=== PATIENT | female | born 2000 | race African-American/Black ===

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

== ENCOUNTER 2022-05-11 18:51 | Emergency (ER) | payer BC, SELFPAY ==
[2022-05-11 19:06] VITALS: BP 149/98; PULSE 103; RESP 16; O2SAT 99
--- NOTE | 2022-05-11 19:23 | ED.NAVMDI ---
HPI - Nausea/Vomiting/Diarrhea General Chief complaint: Nausea/Vomiting/Diarrhea Stated complaint: vomiting Source: patient and RN notes reviewed Mode of arrival: ambulatory Limitations: no limitations History of Present Illness HPI Narrative: 22-year-old female presented for complaint of emesis x1 week with eating. Endorses constant nausea. Cannot keep liquids down. She states for 3 days she has had sore throat as well. She returned from a cruise 2 days ago. Denies sick contacts. Denies abdominal pain, diarrhea, fevers or chills. Related Data Home Medications Medication Instructions Recorded Confirmed levonorgestrel-ethinyl estradiol 1 tablet DIRECTED 05/11/22 05/11/22 0.1 mg-20 mcg tablet ([place]) Allergies Allergy/AdvReac Type Severity Reaction Status Date / Time amoxicillin Allergy Mild Rash Verified 05/11/22 19:37 Review of Systems Review of Systems: CONSTITUTIONAL: Denies body aches, fever, chills EYES: Denies visual changes ENT: Denies rhinorrhea, congestion CARDIOVASCULAR: Denies chest pain, palpitations, or edema. RESPIRATORY: Denies cough or dyspnea. GASTROINTESTINAL: Endorses nausea, vomiting, Denies abdominal pain, hematochezia, melena, hematemesis diarrhea. GENITOURINARY: Denies dysuria, hematuria, or CVA tenderness. SKIN: Denies rash, itching, or wounds. MUSCULOSKELETAL: Denies back pain, joint pain, or myalgia. NEUROLOGIC: Denies headache, numbness, tingling, or weakness. PSYCH: Denies mood change All systems reviewed & are unremarkable except as noted in HPI and below PMFSH Comments At time of signature, I have reviewed and agree with nursing past medical, surgical, social and family history unless otherwise noted. Please see nursing chart for further information. There is no relevant family history pertinent to the presenting complaint Exam Narrative: GENERAL: Well-appearing ENT: Mucous membranes pink and moist. . CHEST: No respiratory distress. Clear to auscultation. HEART: Regular rate and rhythm. No murmur appreciated. Normal peripheral pulses. ABDOMEN:Nontender abdomen, No guarding, rebound tenderness, asymmetry; abd soft, nondistended, normal active bowel sounds. MUSCULOSKELETAL: No bony tenderness. EXTREMITIES: Normal range of motion. No edema. SKIN: Warm, dry, no rash. Capillary refill normal. Normal skin turgor. NEURO: No focal deficits. Alert and oriented x3. Gait steady. PSYCH: Normal affect. Course Course Emergency Course: Patient is aware of diagnosis, understands and agrees to treatment plan. Anticipatory guidance given. Patient agrees to follow-up as directed and is aware of reasons to seek care at the emergency department. Portions of this record may have been created with voice recognition software Level of Care: Express Care Visit Vital Signs Vital signs: Vital Signs Pulse Rate 103 H 05/11/22 19:06 Respiratory Rate 16 05/11/22 19:06 Blood Pressure 149/98 H 05/11/22 19:06 Pulse Oximetry 99 05/11/22 19:06 Oxygen Delivery Room Air 05/11/22 19:06 Pulse Rate 103 H 05/11/22 19:06 Respiratory Rate 16 05/11/22 19:06 Blood Pressure 149/98 H 05/11/22 19:06 Pulse Oximetry 99 05/11/22 19:06 Oxygen Delivery Room Air 05/11/22 19:06 MDM - Nausea/Vomiting/Diarrhea MDM Narrative Medical decision making narrative: Urine reviewed, ketones present. Strep test neg Urine test neg Advised on supportive measures and signs and symptoms to go to the ER. Verbalized understanding Differential Diagnosis Differential diagnosis: Likely traveler's diarrhea, food poisoning, gastroenteritis and dehydration Lab Data Labs: UCG Bedside Result Negative Reference Range: Negative Strep Screen Presumptive Negative *(Reference Range: Negative)* Urine Glucose 2+
[2022-05-11] MEDS: ONDANSETRON HCL ODT 4 MG TABLET SUBLINGUAL (19:40)
== END 2022-05-11 20:24 | disposition home or self-care (01) ==
PROVIDERS: Emergency Provider Nurse Practitioner Family
DX: R11.2 Nausea with vomiting, unspecified (principal)
CPT/HCPCS: 81003; 81025; 87081; 87880; 99213; A9270; G0463

== ENCOUNTER 2025-09-24 08:32 | Emergency (ER) | payer OTHER, SELFPAY ==
[2025-09-24 08:48] VITALS: BP 144/81; PULSE 89; RESP 16; TEMP 37.6; O2SAT 100
[2025-09-24 09:05] LABS: EDCOVIDSCREEN Negative (Negative); EDINFLUASCREEN Negative (Negative); EDINFLUBSCREEN Negative (Negative); EDSTREPNEGPOS1 Negative (Negative)
--- NOTE | 2025-09-24 09:21 | ED_ITS ---
HPI - URI/Sore Throat General Chief Complaint: Upper Respiratory Infection <Khushboo Dimas APRN - Last Filed: 09/24/25 10:06> Stated Complaint: flu symptoms <Khushboo Dimas APRN - Last Filed: 09/24/25 10:06> Time Seen by Provider: 09/24/25 09:21 <Khushboo Dimas APRN - Last Filed: 09/24/25 10:06> Source: patient <Khushboo Dimas APRN - Last Filed: 09/24/25 10:06> Mode of arrival: ambulatory <Khushboo Dimas APRN - Last Filed: 09/24/25 10:06> Limitations: no limitations <Khushboo Dimas APRN - Last Filed: 09/24/25 10:06> History of Present Illness MD elicited complaint: cough <Jyothi Logan APRN - Last Filed: 09/28/25 13:58> Related Data Home Medications: Home Medications ?Medication ?Instructions ?Recorded ?Confirmed ?Last Taken ?Type levonorgestrel-ethinyl estradiol 1 tablet DIRECTED 05/11/22 05/11/22 Unknown History 0.1 mg-20 mcg tablet ([place]) <Khushboo Dimas APRN - Last Filed: 09/24/25 10:06> Allergies/Adverse Reactions: Allergies Allergy/AdvReac Type Severity Reaction Status Date / Time amoxicillin Allergy Mild Rash Verified 09/24/25 09:10 <Khushboo Dimas APRN - Last Filed: 09/24/25 10:06> Course Vital Signs Vital signs: Vital Signs Temperature 99.7 F H 09/24/25 08:48 Pulse Rate 89 09/24/25 08:48 Respiratory Rate 16 09/24/25 08:48 Blood Pressure 144/81 H 09/24/25 08:48 Pulse Oximetry 100 09/24/25 08:48 Oxygen Delivery Room Air 09/24/25 08:48 Temperature 99.7 F H 09/24/25 08:48 Pulse Rate 89 09/24/25 08:48 Respiratory Rate 16 09/24/25 08:48 Blood Pressure 144/81 H 09/24/25 08:48 Pulse Oximetry 100 09/24/25 08:48 Oxygen Delivery Room Air 09/24/25 08:48 <Khushboo Dimas APRN - Last Filed: 09/24/25 10:06> Vital Signs Temperature 99.7 F H 09/24/25 08:48 Pulse Rate 89 09/24/25 08:48 Respiratory Rate 16 09/24/25 08:48 Blood Pressure 144/81 H 09/24/25 08:48 Pulse Oximetry 100 09/24/25 08:48 Oxygen Delivery Room Air 09/24/25 08:48 Temperature 99.7 F H 09/24/25 08:48 Pulse Rate 89 09/24/25 08:48 Respiratory Rate 16 09/24/25 08:48 Blood Pressure 144/81 H 09/24/25 08:48 Pulse Oximetry 100 09/24/25 08:48 Oxygen Delivery Room Air 09/24/25 08:48 <Jyothi Logan APRN - Last Filed: 09/28/25 13:58> MDM - URI/Sore Throat Lab Data Labs: Lab Results 09/24/25 Range/Units 08:45 POC Influenza A Ag Negative (Negative) POC Influenza B Ag Negative (Negative) POC SARS CoV-2 Ag Negative (Negative) POC Grp A Strep Screen Negative (Negative) <Khushboo Dimas APRN - Last Filed: 09/24/25 10:06> Lab Results 09/24/25 Range/Units 08:45 POC Influenza A Ag Negative (Negative) POC Influenza B Ag Negative (Negative) POC SARS CoV-2 Ag Negative (Negative) POC Grp A Strep Screen Negative (Negative) <Jyothi Logan APRN - Last Filed: 09/28/25 13:58> Discharge Plan Discharge Clinical Impression: Viral upper respiratory tract infection with cough <Khushboo Dimas APRN - Last Filed: 09/24/25 10:06> Patient Disposition: Home <Khushboo Dimas APRN - Last Filed: 09/24/25 10:06> Condition: Stable <Khushboo Dimas APRN - Last Filed: 09/24/25 10:06> Instructions: Upper Respiratory Infection (ED) <Khushboo Dimas APRN - Last Filed: 09/24/25 10:06> Additional Instructions: your COVID, influenza and strep test were negative today. Your symptoms are viral and may last 10-14 days. Continue [id number] Mucinex as directed on packaging. Take ibuprofen or Tylenol every 6-8 hours as needed for pain and fever. Drink at least 64 oz of water a day. See your doctor if not improving. <Khushboo Dimas APRN - Last Filed: 09/24/25 10:06> Patient Language: Turkmen <Khushboo Dimas APRN - Last Filed: 09/24/25 10:06> Prescriptions: New benzonatate 200 mg capsule 200 mg PO TID PRN (Reason: cough) Qty: 20 0RF fluticasone propionate [Flonase Allergy Relief] 50 mcg/actuation spray,suspension 1 spray intranasal BID Qty: 16 0RF Rx Instructions: administer into each nostril azithromycin [Zithromax Z-Yuniel] 250 mg tablet See Rx Instructions .ROUTE .COMPLEX Qty: 6 0RF Rx Instructions: take 500 mg today (day 1), then 250 mg for 4 days (days 2-5) No Action levonorgestrel-ethinyl estrad [[place]ia] 0.1-20 mg-mcg tablet 1 tablet DIRECTED ondansetron 4 mg tablet,disintegrating 4 mg PO Q8H PRN (Reason: nausea and vomiting) Qty: 20 0RF <Khushboo Dimas APRN - Last Filed: 09/24/25 10:06> Follow-up/Referrals: PHYSICIAN,[employer]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
--- NOTE | 2025-09-27 15:39 | PC.NURSE ---
final throat culture reviewed. b-hemolytic, not group a strep isolated. pt contacted et states she still feels sick. provider, ahmet lopez np reviewed culture report and called in a prescription for zithromycin. pt notified of new rx and need to fill it kiko.
--- NOTE | 2025-09-29 17:00 | ED_ITS ---
HPI - URI/Sore Throat General Chief Complaint: Upper Respiratory Infection Stated Complaint: flu symptoms Time Seen by Provider: 09/24/25 09:21 Source: patient Mode of arrival: ambulatory Limitations: no limitations History of Present Illness HPI Narrative: 25 yo F presents with c/o cough, congestion, sore throat, fever, fatigue and vomiting for 1 days. Taking OTC medications to treat symptoms. All systems reviewed and negative except as noted above. Related Data Home Medications ?Medication ?Instructions ?Recorded ?Confirmed ?Last Taken ?Type levonorgestrel-ethinyl estradiol 1 tablet DIRECTED 05/11/22 05/11/22 Unknown History 0.1 mg-20 mcg tablet ([place]) Allergies Allergy/AdvReac Type Severity Reaction Status Date / Time amoxicillin Allergy Mild Rash Verified 09/24/25 09:10 PMFSH Comments At time of signature, agree with nursing past medical, surgical, social and family history. There is no relevant family history pertinent to the presenting complaint. Exam Narrative: GENERAL: This is a well-nourished, well-developed patient, ill-appearing but no acute distress HEAD: normocephalic, atraumatic. EYES: PERRL. Sclera clear/white. Vision is grossly intact. EARS: External ears normal, auditory canals clear and without drainage, TMs normal without perforation. Hearing grossly intact. NOSE: External nose normal with mild congestion, clear nasal drainage THROAT: Mucous membranes moist, mild erythema with postnasal drainage. No swelling or exudates NECK: Neck supple, non-tender without lymphadenopathy, masses or thyromegaly. CARDIOVASCULAR: Regular rate and rhythm without murmurs, gallops, or rubs. RESPIRATORY: Clear to auscultation. Breath sounds equal bilaterally. No wheezes, rales, or rhonchi. SKIN: warm, Dry, intact with no suspicious lesions or rash, good texture and turgor. NEURO: awake, alert, and oriented to person, place and time. There were no obvious focal neurologic abnormalities. EXTREMITIES: No joint tenderness, effusion, or edema noted. Course Course Level of Care: Express Care Visit Vital Signs Vital signs: Vital Signs Temperature 37.6 C H 09/24/25 08:48 Pulse Rate 89 09/24/25 08:48 Respiratory Rate 16 09/24/25 08:48 Blood Pressure 144/81 H 09/24/25 08:48 Pulse Oximetry 100 09/24/25 08:48 Oxygen Delivery Room Air 09/24/25 08:48 Temperature 37.6 C H 09/24/25 08:48 Pulse Rate 89 09/24/25 08:48 Respiratory Rate 16 09/24/25 08:48 Blood Pressure 144/81 H 09/24/25 08:48 Pulse Oximetry 100 09/24/25 08:48 Oxygen Delivery Room Air 09/24/25 08:48 Reviewed MDM - URI/Sore Throat MDM Narrative Medical decision making narrative: Negative COVID, influenza and strep. Strep culture ordered. Will wait for strep culture prior to treating with antibiotics. Recommend patient continue [id number] medications to treat symptoms. Differential Diagnosis Differential diagnosis: Likely upper respiratory infection, sinusitis, viral infection, influenza and pharyngitis Lab Data Labs: Lab Results 09/24/25 Range/Units 08:45 POC Influenza A Ag Negative (Negative) POC Influenza B Ag Negative (Negative) POC SARS CoV-2 Ag Negative (Negative) POC Grp A Strep Screen Negative (Negative) Discharge Plan Discharge Clinical Impression: Viral upper respiratory tract infection with cough Patient Disposition: Home Condition: Stable Instructions: Upper Respiratory Infection (ED) Additional Instructions: your COVID, influenza and strep test were negative today. Your symptoms are viral and may last 10-14 days. Continue [id number] Mucinex as directed on packaging. Take ibuprofen or Tylenol every 6-8 hours as needed for pain and fever. Drink at least 64 oz of water a day. See your doctor if not improving. Patient Language: Telugu Prescriptions: New benzonatate 200 mg capsule 200 mg PO TID PRN (Reason: cough) Qty: 20 0RF fluticasone propionate [Flonase Allergy Relief] 50 mcg/actuation spray,suspension 1 spray intranasal BID Qty: 16 0RF Rx Instructions: administer into each nostril azithromycin [Zithromax Z-Yuniel] 250 mg tablet See Rx Instructions .ROUTE .COMPLEX Qty: 6 0RF Rx Instructions: take 500 mg today (day 1), then 250 mg for 4 days (days 2-5) No Action levonorgestrel-ethinyl estrad [[place]issia] 0.1-20 mg-mcg tablet 1 tablet DIRECTED ondansetron 4 mg tablet,disintegrating 4 mg PO Q8H PRN (Reason: nausea and vomiting) Qty: 20 0RF Follow-up/Referrals: PHYSICIAN,[employer]LECT[employer] ENGINEERING OFFICER [Primary Care Provider, Internal Medicine] Stand Alone Forms: Work/School Release IP Time of Disposition: 09:26
== END 2025-09-24 09:33 | disposition home or self-care (01) ==
PROVIDERS: Emergency Provider Nurse Practitioner Family
DX: J06.9 Acute upper respiratory infection, unspecified (principal); R05.9 Cough, unspecified; Z20.822 Contact with and (suspected) exposure to COVID-19
CPT/HCPCS: 87081; 87426; 87804; 87880; 99213; G0463